=== PATIENT | male | born 1985 | race Caucasian/White ===

== ENCOUNTER 2021-03-22 14:27 | Emergency (ER) | payer OTHER ==
[2021-03-22 14:39] VITALS: TEMP 98; BMI 25.8
[2021-03-22] MEDS ORDERED: LIDOCAINE HCL 1%, 10 MG/ML (50 mL VIAL) SQ ONE (15:54)
[2021-03-22] MEDS ORDERED: LIDOCAINE HCL 1%, 10 MG/ML (20ML VIAL) ONE (15:56)
[2021-03-22] MEDS ORDERED: ceFAZolin 2 GRAM PREMIX BAG IVPB ONE (16:56)
[2021-03-22] MEDS ORDERED: CEFAZOLIN 2 GM in DEXTROSE 5%-WATER - 100 ML IVPB ONE (17:15)
[2021-03-22] MEDS ORDERED: ceFAZolin SODIUM 1 GM VIAL ONE (17:18)
[2021-03-22 17:40] VITALS: BP 142/88; PULSE 88
== END 2021-03-22 17:47 | disposition home or self-care (01) ==
LOC: JER 14:27
PROC: 0PS Upper Bones, Reposition (ICD-10-PCS; principal; 2021-03-22)
PROC: 0HQGXZZ Repair Left Hand Skin, External Approach (ICD-10-PCS; 2021-03-22)
PROC: 3E03329 Introduction of Other Anti-infective into Peripheral Vein, Percutaneous Approach (ICD-10-PCS; 2021-03-22)
PROC: 3E03329 Introduction of Other Anti-infective into Peripheral Vein, Percutaneous Approach (ICD-10-PCS; 2021-03-22)
DX: S63.256A Unspecified dislocation of right little finger, initial encounter (principal); S61.316A Laceration without foreign body of right little finger with damage to nail, initial encounter; W21.01XA Struck by football, initial encounter
CPT/HCPCS: 73110-TC-LT-FY; 73130-TC-LT-FY; 73140-TC-LT-FY; 99284-25

== ENCOUNTER 2021-03-29 14:08 | Emergency (ER) | payer OTHER ==
[2021-03-29 14:19] VITALS: BP 132/81; PULSE 87; TEMP 98.2; BMI 32.1
== END 2021-03-29 15:05 | disposition home or self-care (01) ==
LOC: JERFT 14:08
DX: S61.217A Laceration without foreign body of left little finger without damage to nail, initial encounter (principal); Y99.9 Unspecified external cause status; Z48.02 Encounter for removal of sutures
CPT/HCPCS: 99283-25